=== PATIENT | male | born 1940 | race Caucasian/White ===

== ENCOUNTER 2019-02-28 19:45 | Observation (INO) ==
--- NOTE | 2019-02-28 20:24 | Emergency Department Note ---
Disposition Clinical Impression: Vertigo Disposition: Admitted As Inpatient Condition: Fair Time of Disposition: 21:01 Dizziness HPI - General Chief Complaint: ED Nausea/Vomiting/Diarrhea Stated Complaint: vomiting/dizzy Time Seen by Provider: 02/28/19 19:51 Source: patient Mode of arrival: wheelchair Limitations: no limitations Nursing Notes Reviewed: Yes Vital Signs Reviewed: Yes - History of Present Illness HPI Narrative: 78-year-old male history of diabetes arrives to the emergency department complaining of dizziness. He states it is been intermittent in nature over the course the past month. The patient states it lasts 15 minutes and then subsides. Worse when he turned his head particular to the left. He has had a "stopped up here". The patient states that he has not seen any physicians for this. He denies any chest pain or associated shortness of breath. The patient denies any other complaints at this time. The patient had easily reproduces symptoms when he turned to the left on examination. - Related Data Allergies Allergy/AdvReac Type Severity Reaction Status Date / Time No Known Allergies Allergy Verified 03/01/19 20:25 All systems ED: reviewed and negative except as stated. Constitutional: Denies: fever, chills, weakness Eyes: Denies: vision change ENT ED: Denies: dysphagia Cardiovascular: Denies: chest pain Respiratory: Denies: dyspnea Gastrointestinal: Reports: vomiting (secondary to). Denies: abdominal pain Genitourinary: Denies: urgency, dysuria Musculoskeletal: Denies: back pain, neck pain Integumentary: Denies: rash Neurological: Reports: vertigo. Denies: headache, weakness, numbness, paresthesias, confusion, abnormal gait Past Medical History - Past Medical History Attestation: Yes The following information was validated with the patient. Source: patient Medical history: Reports: diabetes Surgical history: Reports: non-contributory - Social History Smoking Status: Never smoker Alcohol use: Reports: none Drug use: Reports: none Physical Exam - General Limitations: no limitations General appearance: alert, in no apparent distress - Head Head exam: atraumatic, normocephalic, normal inspection - Eye Eye exam: Present: normal appearance, PERRL, EOMI - ENT ENT exam: normal exam, normal oropharynx, mucous membranes moist - Neck Neck exam: Present: normal inspection, full ROM, trachea midline - Chest Chest inspection: Present: normal inspection, symmetric chest wall rise - Respiratory Respiratory exam: Present: normal lung sounds bilaterally - Cardiovascular Cardiovascular exam: Present: regular rate, normal rhythm, normal heart sounds - Abdominal Exam Abdominal exam: Present: soft, Non-Tender. Absent: tenderness, distention, guarding, rebound, rigidity - Extremities Exam Extremities exam: Present: normal inspection, full ROM, normal capillary refill. Absent: tenderness, pedal edema - Neurological Exam Neurological exam: Present: alert, oriented X3, CN II-XII intact, other (HINTs exam reveals visual askew on exam. Otherwise findings consistent with peripheral vertigo.). Absent: motor sensory deficit - Expanded Neurological Exam Patient oriented to: Present: person, place, time Speech: Present: fluid speech Cranial nerves: EOM function (II, III, IV, ): Normal, facial sensation (V): Normal, facial palsy (VII): Normal Cerebellar function: finger to nose: Normal Motor strength - LUE: 5/5 Motor strength - RUE: 5/5 Motor strength - LLE: 5/5 Motor strength - RLE: 5/5 Sensory exam upper extremity: light touch: Normal Sensory exam lower extremity: light touch: Normal Coma Scale Eye Opening: Spontaneous Coma Scale Motor Response: Obeys Commands Coma Scale Verbal Response: Oriented Coma Scale Total: 15 - Skin Skin exam: Present: warm, dry, intact, normal color Course - Reevaluation(s) Reevaluation #1: Patient was reevaluated and states that he was feeling better. The patient ultimately was going to be discharged but upon trying to stand up to be discharged felt dizzy and was unsteady on his feet. Patient will be admitted for further MRI and possible echocardiogram as well as carotid study secondary to significant family history of carotid artery disease. Vital Signs Temperature 97 F L 02/28/19 19:56 Pulse Rate 85 02/28/19 19:56 Respiratory Rate 16 02/28/19 19:56 Blood Pressure 195/71 02/28/19 19:56 O2 Sat by Pulse Oximetry 97 02/28/19 19:56 Temperature 97 F L 02/28/19 19:56 Pulse Rate 85 02/28/19 19:56 Respiratory Rate 16 02/28/19 19:56 Blood Pressure 195/71 02/28/19 19:56 O2 Sat by Pulse Oximetry 97 02/28/19 19:56 Oxygen Delivery Oxygen Delivery Room Air Dizziness - Lab Data Result diagrams: 03/02/19 04:18 03/02/19 04:18 Lab Results 02/28/19 Range/Units 20:24 Urine Color Yellow (Yellow) Urine Clarity Clear (Clear) Urine pH 7.0 (5.0-8.0) pH Units Ur Specific [place] 1.010 (1.010-1.025) Urine Protein Negative (Neg-Trace) mg/dL Urine Glucose (UA) Normal (Normal) mg/dL Urine Ketones Negative (Negative) mg/dL Urine Blood Negative (Negative) Urine Nitrite Negative (Negative) Urine Bilirubin Negative (Negative) Urine Urobilinogen Normal (Normal) mg/dL Ur Leukocyte Esterase Negative (Negative) Ur Culture Indicated? NO (NO) - EKG Data EKG attestation: Yes I reviewed and interpreted this EKG. EKG results narrative: Heart rate 106 beats for minute. Sinus tachycardia. No ST elevation or ST depression noted. PVCs/PACs noted on EKG. No acute changes noted. Attestation Statement - Attestation Attestation: Resident Attestation: I examined this patient and my medical decision making was reviewed with the Resident Physician. I agree with the documented findings, disposition and treatment plan as described except to the extent set forth below. We independently had [id number] contact with the patient.EKG reviewed with resident physician. Agree with documentation. Patient presenting for evaluation of dizziness. Patient has dizziness when he moves his head. Overall dizziness causes him to feel unsteady on his feet. Patient on exam without significant findings. Patient will undergo further evaluation for underlying cause of dizziness as well as medic treatment with meclizine. Cranial nerves II through XII are intact. Sensation throughout the upper and l ower extremities with finger to nose and heel to jose intact.
[2019-02-28 20:40] LABS: Bilirubin,Urine Negative (Negative); Blood,Urine Negative (Negative); Clarity,Urine Clear (Clear); Color,Urine Yellow (Yellow); Glucose,Urine (UA) Normal (Normal); Ketones,Urine Negative (Negative); Leukocyte Esterase,Urine Negative (Negative); Nitrite,Urine Negative (Negative); Protein,Urine Negative (Neg-Trace); Urobilinogen,Urine Normal (Normal)
[2019-02-28 21:07] LABS: Basophils # 0.1 K/mcL (0.0-0.2); Basophils % 0.6 %; Eosinophils # 0.1 K/mcL (0.0-0.6); Eosinophils % 0.5 %; Hemoglobin 13.4 g/dL (12.9-16.9); Immature Granulocytes % 0.5 % (0-4); Lymphocytes # 2.3 K/mcL (0.6-4.6); Lymphocytes % 22.9 %; Mean Corpuscular HGB Conc 33.5 g/dL (31.6-35.5); Mean Corpuscular Hemoglobin 27.1 pg (28.0-33.3); Mean Platelet Volume 11.2 fL (9.4-12.4); Monocytes # 0.5 K/mcL (0.0-1.3); Platelet Count 260 K/mcL (140-400); Red Blood Count 4.94 M/mcL (4.19-5.50); Red Cell Distribution Width 13.4 % (11.5-14.5); Segmented Neutrophils % 70.5 %; White Blood Count 9.9 K/mcL (4.3-11.1)
[2019-02-28 21:24] LABS: BUN/Creatinine Ratio 16 (6-26); Blood Urea Nitrogen 16 mg/dL (8-23); Calcium 9.7 mg/dL (8.6-10.3); Carbon Dioxide 25 mEq/L (23-29); Chloride 102 mEq/L (98-107); Glucose 148 mg/dL (70-105); Osmolality,Calculated 284 (280-300); Potassium 4.1 mEq/L (3.5-5.1); Sodium 135 mEq/L (136-145); eGFR For African Americans > 60 (> 60); eGFR For Non-African Americans > 60 (> 60)
[2019-02-28 21:25] LABS: Troponin I < 0.03 ng/mL (< 0.04)
[2019-03-01] MEDS ORDERED: Ondansetron 4 MG/2 ML VIAL IVP ONE (02:27)
[2019-03-01] MEDS ORDERED: Naloxone 0.4 MG/ML INJ IVP PRN (04:27)
[2019-03-01] MEDS ORDERED: Ondansetron 4 MG/2 ML VIAL IVP PRN (04:27)
[2019-03-01] MEDS ORDERED: Dextrose Gel 15 GM/37.5 ML TUBE PO PRN ×2 (04:29)
[2019-03-01] MEDS ORDERED: *HR* Dextrose 50 % in Water (Syg) 50 ML SYRINGE IVP PRN (04:29)
[2019-03-01] MEDS ORDERED: D5% in Water 1,000 ML IVC PRN (04:29)
--- NOTE | 2019-03-01 04:34 | Internal Med History&Physical ---
Date of Encounter: 03/01/19 Time of Encounter: 04:04 Internal Medicine - H&P: HPI Chief complaint: Dizziness Admitted From: Emergency Dept Plans for Post Hospital Care: Home History of present illness: Mr. Iqbal is a 78 year old male Patient presented to the emergency room with dizziness for the last month. He is also had some falls as well as nausea and vomiting. His symptoms have worsened over the last few days. When his symptoms first began he thought it was not in her ear issue. He went to see an ENT to have his ears cleaned out, but they were only partially successful with this procedure. He continued to have symptoms so he came to the ER for further evaluation. In the emergency department patient's vital signs were within normal limits aside from an elevated blood pressure of 195/71 CBC notable for MCV of 81. BMP within normal limits, mildly elevated glucose of 148. Urinalysis negative for infection Head CT no acute intracranial abnormality EKG performed in the emergency department showed a sinus tachycardia with no ischemic changes. Patient was given meclizine as well as IV Zofran without improvement of symptoms. He was admitted to the hospital for further management. Upon my evaluation, patient is resting comfortably in the hospital bed in no acute distress his is at bedside. He denies chest pain, abdominal pain, nausea, vomiting, diarrhea and constipation. His symptoms are controlled if he does not sit up. When I attempted to sit the patient appeared refused stating that he gets too nauseous and dizzy. He denies significant family medical history, aside from his father and brother both having "hard arteries" in their necks. He is a full code. Past Med Surg Social Fam HX - Past Medical History Medical history: diabetes - Past Surgical History Surgical History: non-contributory - Social History Smoking Status: Never smoker Alcohol use: none Drug use: none Internal Medicine - H&P: Meds metFORMIN [Glucophage] 850 mg PO BIDWM 03/01/19 [History] Allergy/AdvReac Type Severity Reaction Status Date / Time No Known Allergies Allergy Verified 02/28/19 19:59 All Systems PM: A 10-system review of systems was performed and is negative for pertinent findings except as documented above in the HPI. - Constitutional Vitals: Temp Pulse Resp BP Pulse Ox 98.1 F 97 16 121/69 97 03/01/19 04:00 03/01/19 04:00 03/01/19 04:00 03/01/19 04:00 03/01/19 04:00 General appearance: Present: cooperative, A&O X 3, pleasant, no acute distress, answers questions appropriately Exam: - - Head Head exam: Present: normal inspection - Eye Eye exam: Present: EOMI, normal appearance - Neck Neck exam general surgery: Present: full ROM - Respiratory Respiratory exam: Present: CTAB. Absent: chest wall tenderness, decreased breath sounds, rales, respiratory distress, rhonchi, wheezes - Cardiovascular Cardiovascular exam: Present: irregular rhythm. Absent: diastolic murmur, systolic murmur - GI/Abdominal GI/Abdominal exam: Present: normal bowel sounds, soft. Absent: tenderness - Extremities Exam Extremities exam: Present: warm, radial pulses palpable and symmetrical. Absent: calf tenderness, pedal edema, tenderness - Neurological Exam Neurological exam: Present: no focal deficits, strengths equal and symetr throughout. Absent: motor sensory deficit, facial droop, speech deficit Additional comments: Patient could not sit up in the bed with out getting dizzy. Remained in supine position. No nystagmus - Skin Skin exam: Present: dry, normal color, warm. Absent: erythema Internal Med - H&P Results - Labs CBC & Chem 7: 03/01/19 05:13 03/01/19 05:13 Labs: Short CBC 02/28/19 Range/Units 20:49 WBC 9.9 (4.3-11.1) K/mcL Hgb 13.4 (12.9-16.9) g/dL Hct 40.0 (37.5-50.1) % Plt Count 260 (140-400) K/mcL Neutrophils # 7.0 (1.6-8.9) K/mcL BMP 02/28/19 20:49 Sodium 135 L Potassium 4.1 Chloride 102 Carbon Dioxide 25 BUN 16 Creatinine 0.99 Glucose 148 H Calcium 9.7 Cardiac Enzymes 02/28/19 Range/Units 20:49 Troponin I < 0.03 (< 0.04) ng/mL Urine 02/28/19 Range/Units 20:24 Urine Color Yellow (Yellow) Urine Clarity Clear (Clear) Urine pH 7.0 (5.0-8.0) pH Units Ur Specific [place] 1.010 (1.010-1.025) Urine Protein Negative (Neg-Trace) mg/dL Urine Glucose (UA) Normal (Normal) mg/dL - Impressions ITS Impressions Head CT 02/28/19 20:15 IMPRESSION: No acute intracranial abnormality. D/ / Etienne Leo MD / Etienne Leo MD Interpreting Provider: Etienne Leo MD - Assessment and Plan (1) Dizziness Current Visit: Yes Status: Acute Assessment and plan: Possibly secondary to new onset atrial fibrillation. CT head negative. Meclizine did not improve his symptoms. No nystagmus on exam. Patient did have atrial fibrillation on repeat EKG once he arrived to the hospital floor. Obtain brain MRI Carotid Dopplers Echocardiogram PT OT consultation (2) Dysrhythmia Current Visit: Yes Status: Acute Assessment and plan: On exam patient's heart rate was noted to have irregular pulses/heart rate. Ordered stat repeat EKG which showed atrial fibrillation with a rate of 96. He has no previous diagnosis of atrial fibrillation. Cardiac monitoring Start heparin drip Cardiology consult Echocardiogram in the morning Check TSH Qualifiers: Arrhythmia type: atrial fibrillation Atrial fibrillation type: unspecified Qualified Code(s): I48.91 - Unspecified atrial fibrillation (3) Diabetes Current Visit: Yes Status: Acute Assessment and plan: Patient is not an insulin dependent diabetic Monitor sugars every 6 hours Nothing by mouth Low dose insulin sliding scale as needed Hold home meds. Qualifiers: Diabetes mellitus type: type 2 Diabetes mellitus assisted insulin use: without lobsterman use Diabetes mellitus complication status: without complication Qualified Code(s): E11.9 - Type 2 diabetes mellitus without complications (4) DVT prophylaxis Current Visit: Yes Status: Acute Assessment and plan: Heparin drip - Time Spent With Patient Total time spent is greater than 50% in coordination of care (as documented) at patient's floor/unit and/or counseling patient: Greater than 35 minutes
[2019-03-01] MEDS ORDERED: *HR* Heparin 5,000 UNIT/ML VIAL IVP PRN ×6 (04:48→17:15)
[2019-03-01] MEDS ORDERED: *HR* Heparin 5,000 UNIT/ML VIAL IVP ONE (04:48)
[2019-03-01] MEDS ORDERED: Heparin 25,000 UNIT/250 ML D5W 25,000 UNIT/250 ML IV.SOLN IVC SCH (05:00)
[2019-03-01 05:53] LABS: Heparin anti-factor XA UFH 0.03 IU/mL (0.30-0.70); INR 1.2; Prothrombin Time 13.2 Seconds (9.4-12.1)
[2019-03-01 05:58] LABS: Hematocrit 41.2 % (37.5-50.1); Hemoglobin 13.6 g/dL (12.9-16.9); Mean Corpuscular Hemoglobin 27.2 pg (28.0-33.3); Mean Corpuscular Volume 82.4 fL (83.0-100.0); Mean Platelet Volume 11.1 fL (9.4-12.4); Platelet Count 258 K/mcL (140-400); Red Cell Distribution Width 13.3 % (11.5-14.5); White Blood Count 9.6 K/mcL (4.3-11.1)
[2019-03-01] MEDS ORDERED: Insulin LISPRO 300 UNITS/3 ML VIAL SQ SCH ×2 (06:00→21:00)
[2019-03-01 06:06] LABS: Alanine Aminotransferase 12 Units/L (7-52); Albumin 4.1 g/dL (3.5-5.7); Albumin/Globulin Ratio 1.4 (1.1-2.2); Alkaline Phosphatase 43 Units/L (34-104); Aspartate Amino Transferase 13 Units/L (13-39); BUN/Creatinine Ratio 16 (6-26); Bilirubin,Total 0.6 mg/dL (0.3-1.0); Blood Urea Nitrogen 15 mg/dL (8-23); Calcium 9.4 mg/dL (8.6-10.3); Carbon Dioxide 24 mEq/L (23-29); Chloride 100 mEq/L (98-107); Glucose 178 mg/dL (70-105); Magnesium 1.8 mg/dL (1.6-2.6); Osmolality,Calculated 283 (280-300); Phosphorous 3.4 mg/dL (2.7-4.5); Potassium 4.1 mEq/L (3.5-5.1); Sodium 134 mEq/L (136-145); Total Protein 7.1 g/dL (6.4-8.9); eGFR For African Americans > 60 (> 60); eGFR For Non-African Americans > 60 (> 60)
[2019-03-01 06:55] LABS: Thyroid Stimulating Hormone 1.604 mcIU/mL (0.340-5.600)
--- NOTE | 2019-03-01 08:16 | Cardiology Consult Note ---
<Mckenna Valdez N - Last Filed: 03/01/19 11:09> Date of Encounter: 03/01/19 Time of Encounter: 08:14 Assessment and Plan (1) New onset atrial fibrillation Current Visit: Yes Status: Acute Unknown etiology - possibilities include hypertensive heart disease, heart failure, and coronary insufficiency. Preliminary CHADS VASC = 4, due to patient's age, history of diabetes, and hypertension; however, this score may be higher if patient has previously undiagnosed CHF. Echocardiogram has been performed, with results pending. Regardless, patient will require anticoagulation to decrease his risk of stroke. Recommendations: - Follow up on echocardiogram results. - Start oral anticoagulation with eliquis or xarelto, depending on patient's insurance coverage. Once covered medication is identified, therapy will be initiated, after which heparin gtt can be discontinued. - Start toprol XL 25mg daily. - Consider outpatient cardiac stress testing if indicated to evaluate for coronary insufficiency. (2) Dizziness Current Visit: Yes Status: Acute Review of telemetry shows average HR of 87, with no significant pauses or abnormalities to suggest a cardiac etiology of patient's dizziness. Based on patient's description, his symptoms clinically sound like vertigo; however, brain MRI is significant for extra-axial mass centered along the left sphenoid wing most compatible with a meningioma. - Consider neurology consult for further evaluation and recommendations. (3) Hypertension Current Visit: Yes Status: Acute History of hypertension. Initial BP upon arrival to the ED was notably elevated at 195/71; most recent BP is WNL at 118/67. - Start metoprolol as above for atrial fibrillation. - Consider addition of other antihypertensive agents if patient continues to have elevated BP. Qualifiers: Hypertension type: unspecified Qualified Code(s): I10 - Essential (primary) hypertension Discussion w patient/family: The assessment and plan as outlined above was discussed with the patient and/or family members who expressed understanding and agreement. All questions were answered. Thank you for involving us in the care of your patient. Please call with any questions. History of Present Illness Consult date: 03/01/19 Requesting physician: Ko Fuentes Consult reason: New onset atrial fibrillation Chief complaint: Dizziness History of present illness: Mr. Iqbal is a 78 year old male with a history of diabetes mellitus and hypertension who presented to the ED for evaluation of worsening dizziness x1 month. He describes the sensation more like being "on a boat" versus the room spinning, and states that it is intermittently triggered by movement of his h ead. He reports associated nausea and vomiting with these episodes. Initial workup was negative for apparent causes of this problem, and patient was admitted for further workup. Upon arrival to the hospital floor, he was noted to have an irregular heart rhythm. Repeat ECG was significant for atrial fibrillation, which patient denies any history of. He was started on a heparin gtt for anticoagulation, and cardiology consult was placed for evaluation and recommendations. On evaluation this morning, patient reports improvement in his symptoms, stating that he was able to walk to and from the bathroom without difficulty. He states that these episodes of dizziness have been intermittent for the last month; however, his symptoms worsened to the point that he was unable to walk, which prompted him to go to the ED for evaluation. He denies any headaches, changes in vision, chest pain, palpitations, shortness of breath, lower extremity edema, or increased fatigue. He denies any other medical history and has had no previous cardiac testing. Past Med Surg Social Fam HX - Past Medical History Medical history: diabetes - Past Surgical History Surgical History: non-contributory - Social History Smoking Status: Never smoker Alcohol use: none Drug use: none Medications and Allergies Rivaroxaban [Xarelto] 20 mg PO DAILY #30 tablet 03/01/19 [Rx] metFORMIN [Glucophage] 850 mg PO BIDWM 03/01/19 [History] Allergy/AdvReac Type Severity Reaction Status Date / Time No Known Allergies Allergy Verified 02/28/19 19:59 All Systems Review: The remainder of the systems were reviewed and are negative - Constitutional Constitutional: no fatigue, no headache(s), no weakness - EENT Eyes: no blurred vision - Cardiovascular Cardiovascular: no chest pain at rest, no dyspnea at rest, no irregular heart rhythm, no radiating jaw, neck or arm pain, no leg edema, no lightheadedness, no palpitations, no syncope - Respiratory Respiratory: no dyspnea - Gastrointestinal Gastrointestinal: nausea - Neurological Neurological: dizziness Physical Examination Vital Signs, Last 4 Hours Temp Pulse Resp BP Pulse Ox 03/01/19 07:33 98.6 F 83 16 118/67 96 General: Conversant, No Apparent Distress HEENT: Atraumatic, Normocephaly, Mucus Membranes Moist Cardiac: Normal S1 and S2, No Murmur, Other (irregular rhythm) Lungs: Normal Breath Sounds, No Wheeze, Rales, Rhonchi Neuro: Alert and responsive, No focal deficits noted Abdomen: Soft, Non-Tender Skin: No rashes noted on visualized skin Musculoskeletal: No Chest Wall Tenderness Extremities: No Clubbing, No Cyanosis, No Edema, Normal Pulses Results 03/01/19 05:13 03/01/19 05:13 Lab Results 02/28/19 02/28/19 03/01/19 20:49 20:49 05:13 WBC 9.9 Hgb 13.4 Hct 40.0 Plt Count 260 INR Sodium 135 L 134 L Potassium 4.1 4.1 Chloride 102 100 Carbon Dioxide 25 24 BUN 16 15 Creatinine 0.99 0.94 Glucose 148 H 178 H Calcium 9.7 9.4 Magnesium 1.8 Total Bilirubin 0.6 AST 13 ALT 12 Alkaline Phosphatase 43 Troponin I < 0.03 TSH 1.604 03/01/19 03/01/19 05:13 05:13 WBC 9.6 Hgb 13.6 Hct 41.2 Plt Count 258 INR 1.2 Sodium Potassium Chloride Carbon Dioxide BUN Creatinine Glucose Calcium Magnesium Total Bilirubin AST ALT Alkaline Phosphatase Troponin I TSH Consult Discharge Plan - Plan Referrals: NONE,PCP [Primary Care Provider] - Prescriptions: Rivaroxaban [Xarelto] 20 mg PO DAILY #30 tablet <Carmen Funes - Last Filed: 03/01/19 12:22> Date of Encounter: 03/01/19 - Attending Attestation I examined this patient and my medical decision-making was reviewed with the Resident Physician. I agree with the documented findings, disposition and treatment plan as described. Mr. Iqbal presents with newly discovered atrial fibrillation, rate controlled. Main complaint is dizziness associated sometimes with nausea and vomiting. Patient denies recent chest pain, sob or palpitations. AAOX3, NAD at bedside. No appreciable cardiac murmur No congestive findings on exam ECG demonstrates AFIB, HR 96 bpm, nonspecific ST abnormalities Serial troponins negative, TSH normal, Hgb normal, renal function normal, abnormal cholesterol Telemetry demonstrates average HR 87 bpm without pauses Impression/Plan: 1. Atrial fibrillation: Newly discovered, chronicity unknown. Heart rates are normal. Recommend addition of low dose BB for rate control. In regards to AC, CHADSVASC is 4 - discussed R/B/A of anticoagulation with the patient and . They are in agreement with NOAC for CVA prevention. Will send clemons check. Etiology of new AFIB may be related to structural heart disease and underlying HTN - TTE pending. No complaints of chest pain at this time. Consider outpatient stress test if appropriate. 2. Dizziness: Etiology of dizziness unclear. By description, some symptoms appear orthostatic. Recommend orthostatic VS. Otherwise, AFIB is rate controlled and there are no other telemetry abnormalities consistent with his symptoms. In addition, has meningioma on brain MRI which is a new diagnosis. Recommend Neurology consultation. 3. Dyslipidemia: Abnormal lipid panel. ASCVD 10 year risk is high, >56%. Therefore, recommend the addition of statin therapy for risk reduction. 4. Hypertension: Elevated on arrival. BPs appear improved. Reports "normal" BP at home. Recommend the addition of Toprol for both rate control of AFIB and BP control. Assessment and Plan Discussion w patient/family: The assessment and plan as outlined above was discussed with the patient and/or family members who expressed understanding and agreement. All questions were an swered. Thank you for involving us in the care of your patient. Please call with any questions. History of Present Illness History of present illness: Mr. Iqbal is a 78 year old male All Systems Review: The remainder of the systems were reviewed and are negative Physical Examination Vital Signs, Last 4 Hours Temp Pulse Resp BP Pulse Ox 03/01/19 11:26 97.9 F 65 16 133/70 97 Results 03/01/19 05:13 03/01/19 05:13 Lab Results 02/28/19 02/28/19 03/01/19 20:49 20:49 05:13 WBC 9.9 Hgb 13.4 Hct 40.0 Plt Count 260 INR Sodium 135 L 134 L Potassium 4.1 4.1 Chloride 102 100 Carbon Dioxide 25 24 BUN 16 15 Creatinine 0.99 0.94 Glucose 148 H 178 H Calcium 9.7 9.4 Magnesium 1.8 Total Bilirubin 0.6 AST 13 ALT 12 Alkaline Phosphatase 43 Troponin I < 0.03 < 0.03 TSH 1.604 03/01/19 03/01/19 05:13 05:13 WBC 9.6 Hgb 13.6 Hct 41.2 Plt Count 258 INR 1.2 Sodium Potassium Chloride Carbon Dioxide BUN Creatinine Glucose Calcium Magnesium Total Bilirubin AST ALT Alkaline Phosphatase Troponin I TSH
--- NOTE | 2019-03-01 10:27 | Electrocardiograph Report ---
[place] [id number] Test Date: 2019-03-01 Pat Name: Gavin Iqbal Department: 112 Room: 2A Gender: M Application Processor: : 1940 Requested By: Ko Fuentes Order Number: [id number] Reading MD: Carmen Funes Measurements Intervals [place] Rate: 96 P: MS: 0 QRS: 15 QRSD: 93 T: 63 QT: 321 QTc: 374 Interpretive Statements ATRIAL FIBRILLATION WITH ABERRANT CONDUCTION OR VENTRICULAR PREMATURE COMPLEXES MINIMAL ST DEPRESSION ABNORMAL RHYTHM ECG Electronically Signed On 03-01-2019 10:26:17 EDT by Carmen Funes
--- NOTE | 2019-03-01 10:50 | Electrocardiograph Report ---
[place] [id number] Test Date: 2019-02-28 Pat Name: Gavin Iqbal Department: EXAM19 Room: 2A Gender: M [employer] Worker: : 1940 Requested By: Trey Rausch Order Number: [id number] Reading MD: Carmen Funes Measurements Intervals [place] Rate: 106 P: 68 ME: 174 QRS: -2 QRSD: 104 T: 61 QT: 354 QTc: 471 Interpretive Statements Sinus tachycardia Atrial and ventricular premature complexes Low voltage, precordial leads Electronically Signed On 03-01-2019 10:47:57 EDT by Carmen Funes
[2019-03-01 11:10] LABS: Chol/HDL Ratio 6.3 (0-4.9); Cholesterol 233 mg/dL (< 200); HDL Cholesterol 37 mg/dL (40-59); LDL Cholesterol,Calculated 171 mg/dL (0-99); Triglycerides 127 mg/dL (< 150)
[2019-03-01 11:11] LABS: Troponin I < 0.03 ng/mL (< 0.04)
[2019-03-01 11:39] LABS: Estimated Average Glucose 177 mg/dl
[2019-03-01] MEDS: Insulin LISPRO 300 UNITS/3 ML VIAL SQ SCH ×2 (11:48→17:07)
--- NOTE | 2019-03-01 11:48 | Event Note ---
Date of Encounter: 03/01/19 Time of Encounter: 08:30 H&P reviewed. 78 year old male with hx of DM was admitted for long-standing dizziness. Was found to have afib during the workup incidentally. ACS ruled out with serial troponins, TSH unremarkable. start bb for rate control and will check with SW regarding the cost for NOACs. Will complete the workup with echocardiogram, carotid doppler, MRI brain. Likely home tomorrow.
[2019-03-01] MEDS: Metoprolol XL (24 HR) Succ 25 MG TAB.ER.24H PO SCH (11:59)
--- NOTE | 2019-03-01 14:30 | Event Note ---
<Mckenna Valdez - Last Filed: 03/01/19 14:29> Date of Encounter: 03/01/19 Time of Encounter: 14:29 - Cardiology Event Note Results of echocardiogram performed on 03/01/2019 were as follows: Technically sub-optimal study due to poor echocardiographic windows. LVEF 50-55%. Normal LV chamber size, wall thickness and low normal function. Atypical septal motion consistent with bundle branch block. Indeterminate diastolic function. Normal right ventricular structure and function. No evidence of pulmonary hypertension. No obvious significant valvular dysfunction. Patient has been started on appropriate medical therapy, with new medications of toprol XL 25mg daily, atorvastatin 40mg daily, and xarelto 20mg daily. Orthostatic vital signs reviewed; patient does not demonstrate evidence of orthostatic hypotension. At this time, cardiology will sign off. Please reconsult as needed and call if any questions. <Carmen Funes - Last Filed: 03/01/19 14:41> Date of Encounter: 03/01/19 - Cardiology Event Note Agree with Environmental Protection Geologist's assessment and recommendations.
[2019-03-01] MEDS ORDERED: *HR* Rivaroxaban 10 MG TABLET PO SCH (17:00)
[2019-03-02 04:52] LABS: Hematocrit 41.1 % (37.5-50.1); Hemoglobin 13.5 g/dL (12.9-16.9)
[2019-03-02 05:14] LABS: BUN/Creatinine Ratio 16 (6-26); Blood Urea Nitrogen 16 mg/dL (8-23); Calcium 9.1 mg/dL (8.6-10.3); Carbon Dioxide 25 mEq/L (23-29); Chloride 103 mEq/L (98-107); Glucose 126 mg/dL (70-105); Osmolality,Calculated 279 (280-300); Potassium 3.9 mEq/L (3.5-5.1); Sodium 133 mEq/L (136-145); eGFR For African Americans > 60 (> 60); eGFR For Non-African Americans > 60 (> 60)
[2019-03-02 07:14] VITALS: BP 146/77
[2019-03-02] MEDS: Insulin LISPRO 300 UNITS/3 ML VIAL SQ SCH (08:01)
[2019-03-02] MEDS: Metoprolol XL (24 HR) Succ 25 MG TAB.ER.24H PO SCH (08:01)
--- NOTE | 2019-03-02 09:28 | Discharge Summary ---
- NOTES TO OUTPATIENT PROVIDER Notes to Outpatient Provider: Follow-up with cardiology as an outpatient Date of Encounter: 03/02/19 Time of Encounter: 07:15 - Discharge Diagnosis (1) Dizziness Priority: Secondary Status: Acute (2) DVT prophylaxis Priority: Secondary Status: Acute (3) Diabetes Priority: Secondary Status: Acute Qualifiers: Diabetes mellitus type: type 2 Diabetes mellitus joint terminal attack controller insulin use: without group home use Diabetes mellitus complication status: without complication Qualified Code(s): E11.9 - Type 2 diabetes mellitus without complications (4) New onset atrial fibrillation Priority: Primary Status: Acute Hospital course: Mr. Iqbal is a 78 year old male with hx of DM was admitted for dizziness/lightheadedness in the setting of new onset afib. ACS ruled out with serial troponins, TSH unremarkable. Echocardiogram showed preserved EF without significant valvulopathy. He was started on bb for rate control and Xarelto for AC. Also had workup for ?TIA with negative carotid doppler and absence of PFO on echo. Follow up with cardiology as outpatient for consideration of ischemic workup. Of note, he is also noted to have dyslipidemia and was started on lipitor. Discharge discussed with: patient, family, nurse - Time Spent with Patient Total time spent providing and/or coordinating discharge services: 28 mins - Discharge Medications Prescriptions: New Rivaroxaban [Xarelto] 20 mg PO DAILY #30 tablet Atorvastatin [Lipitor] 40 mg PO HS #30 tablet Metoprolol XL (24 HR) Succ [Toprol Xl] 25 mg PO DAILY #30 tab.er.24h Continued metFORMIN [Glucophage] 850 mg PO BIDWM Home Medications: Rivaroxaban [Xarelto] 20 mg PO DAILY #30 tablet 03/01/19 [Rx] metFORMIN [Glucophage] 850 mg PO BIDWM 03/01/19 [History] Atorvastatin [Lipitor] 40 mg PO HS #30 tablet 03/02/19 [Rx] Metoprolol XL (24 HR) Succ [Toprol Xl] 25 mg PO DAILY #30 tab.er.24h 03/02/19 [Rx] Allergies/Adverse Reactions: Allergy/AdvReac Type Severity Reaction Status Date / Time No Known Allergies Allergy Verified 03/01/19 20:25 Date of admission: 03/01/19 02:57 Primary care physician: PCP NONE Consults: 03/01/19 04:48 Consult to Cardiology [CONS] Routine Comment: Consulting Provider: Cardiology Magaly Reason for Consult: New onset atrial fibrillation Call Completed: No 03/01/19 06:22 Consult to Occupational Therapy [CONS] Routine Comment: Evaluate, develop and implement POC Reason for Consult: New diagnosis of atrial fibrillation, dizziness, instability with walking Does patient have active BEDREST order?: No Is patient medically & hemodynamically stable?: Yes Patient assessed for mobility or mobilized this visit?: No Consult to Physical Therapy [CONS] Routine Comment: Evaluate, develop and implement POC Reason for Consult: New diagnosis of atrial fibrillation, dizziness, instability with walking Does patient have active BEDREST order?: No Is patient medically & hemodynamically stable?: Yes Patient assessed for mobility or mobilized this visit?: No - Constitutional Vitals: Temp Pulse Resp BP Pulse Ox 98.5 F 78 18 146/77 98 03/02/19 07:13 03/02/19 07:13 03/02/19 07:13 03/02/19 07:13 03/02/19 07:13 General appearance: Present: cooperative, A&O X 3, pleasant, no acute distress, answers questions appropriately Exam: General: Alert and oriented, not in acute distress. Cardiovascular:Normal S1 & S2, No JVD. Pulse regular. Lungs: clear to auscultation, no wheezes/rales Abdomen:Soft, non-tender, no rigidity. Extremities:No deformity or swelling Neurological:Normal cognition and motor skills. Non-focal - Patient Status Disposition: Home, Self-Care Condition: Fair Functional capacity at discharge: independent ambulation Overall status at discharge: patient is progressing back to baseline - Discharge Instructions Instructions: Diabetes Mellitus Type 2 in Adults (DC), Chronic Hypertension (DC), Atrial Fibrillation (DC) Follow Up With: NONE,PCP [Primary Care Provider] - Carmen Funes DO [Partnered Physician] - - Diet and Activity Activity: resume usual activities as tolerated Diet: diabetic diet
== END 2019-03-02 10:32 | disposition home or self-care (01) ==
LOC: EMEROOARM 19:45 → 2ANU 19:45 → SUATTDRO 03-01 02:57 → 2ANU 03-01 03:17
PROVIDERS: ADMIT Family Medicine; ATTEND Internal Medicine